=== PATIENT | female | born 1985 | race Caucasian/White ===

== ENCOUNTER 2016-06-29 17:20 | Emergency (ER) | payer MEDICARE, OTHER ==
[2016-06-29 20:31] LABS: HEMOGLOBIN 13.7 gm/dl (12.3-15.3); RED BLOOD COUNT 4.48 M/UL (4.00-5.10); WHITE BLOOD COUNT 12.7 K/UL (4.5-11.0)
[2016-06-29 20:49] LABS: BUN/CREATININE RATIO 33 (0-10)
== END 2016-06-30 00:37 | disposition home or self-care (01) ==
LOC: ER1 17:20
PROVIDERS: Family Medicine
DX: E86.0 Dehydration (principal); K08.89 Other specified disorders of teeth and supporting structures; F84.0 Autistic disorder; R63.8 Other symptoms and signs concerning food and fluid intake; Z79.899 Other long term (current) drug therapy; Z88.8 Allergy status to other drugs, medicaments and biological substances
CPT/HCPCS: 36415; 80053; 85025; 96372; 96374; 99284; J2060; J7030

== ENCOUNTER → 2021-05-05 | Outpatient (CLI) | payer MEDICARE, OTHER | LOC: KOH-I 13:25 | DX: R05.1 Acute cough (principal) | CPT/HCPCS: 71046 ==

== ENCOUNTER → 2021-07-29 | Outpatient (CLI) | payer MEDICARE, OTHER | LOC: LAB 16:04 | DX: Z01.812 Encounter for preprocedural laboratory examination (principal); Q21.3 Tetralogy of Fallot; Q22.1 Congenital pulmonary valve stenosis; Z20.822 Contact with and (suspected) exposure to COVID-19 | CPT/HCPCS: 84703; U0003 ==